=== PATIENT | female | born 1965 | race African-American/Black ===

== ENCOUNTER 2018-09-20 11:29 | Emergency (ER) | payer OTHER ==
[~2018-09-20] VITALS: Ht 177.8 cm; Wt 75.0 kg
[~2018-09-20 11:29] MED LIST: DOCU-138 PO; FERR-63 PO; IBUP100T20 PO; MULT-1116 PO
[2018-09-20] MEDS ORDERED: SODIUM CHLORIDE 0.9% 1,000 ML IV ONE (11:48)
[2018-09-20 11:50] VITALS: BP 148/98
[2018-09-20] MEDS ORDERED: LORAZEPAM 2MG/ML CPJ IV ONE (12:00)
[2018-09-20] MEDS ORDERED: OLANZAPINE 10 MG/VIAL IM ONE (12:15)
[2018-09-20] MEDS ORDERED: LORAZEPAM 2MG/ML CPJ IM ONE (12:15)
== END 2018-09-20 12:37 | disposition left against medical advice (07) ==
LOC: ER 11:29
DX: T40.991A Poisoning by other psychodysleptics [hallucinogens], accidental (unintentional), initial encounter (principal); X58.XXXA Exposure to other specified factors, initial encounter; G92 Toxic encephalopathy
CPT/HCPCS: 99283; J3490; J7030; J2060